=== PATIENT | female | born 1970 | race Caucasian/White ===

== ENCOUNTER 2016-07-25 10:47 | Emergency (ER) | payer OTHER ==
[~2016-07-25] VITALS: Ht 172.7 cm; Wt 116.1 kg
[~2016-07-25 10:47] MED LIST: ACID CONTROL150 MG PO; AMBIEN10 MG PO; BISACODYL SUPP10 MG PR; CELEXA40 MG PO; COLACE100 MG PO; ENDOCET 5-3251 EACH PO; IBUPROFEN800 MG PO; IRON325 MG PO; KLONOPIN0.5 M1 PO; LOVENOX40 MG/0.4 SC; MYLICON,MYLANTA80 MG PO; OXYCODONE HCL5 MG; PROTONIX40 MG PO; SENNA8.6 MG PO; ULTRAM50 MG PO; VITAMIN B12-FO1 EACH SL; VITAMIN D31000 UNIT PO
[2016-07-25 10:55] VITALS: BP 122/79
[2016-07-25 11:58] LABS: HEMATOCRIT 47.7 % (36.0-46.0); MCH 29.6 PG (29.0-34.0); MCHC 33.1 G/DL (30.0-36.0); MCV 89.5 FL (83-99); MEAN PLAT.VOLUME 11.1 uM^3 (9.5-12.4); PLATELET COUNT 284 K/uL (156-360); RBC DIS.WIDTH-SD 42.5 % (39-53); RED BLOOD COUNT 5.33 M/uL (3.80-5.20); WHITE BLOOD COUNT 8.1 K/uL (4.1-10.2)
[2016-07-25] MEDS ORDERED: CYMBALTA60 MG PO (11:58)
[2016-07-25] MEDS ORDERED: MULTI-DAY VITA1 EACH PO (11:58)
[2016-07-25] MEDS ORDERED: LATUDA40 MG PO (11:59)
[2016-07-25 12:14] LABS: CHLORIDE 104 mEq/L (99-109); POTASSIUM 4.3 mEq/L (3.7-5.4); SODIUM 138 mEq/L (136-147)
[2016-07-25 12:16] LABS: GLUCOSE 86 mg/dL (70-99)
[2016-07-25 12:17] LABS: ANION GAP 10 MEQ/L (2-14)
[2016-07-25 12:20] LABS: GFR ESTIMATE (CALCULATED) > 59 mL/min/
[2016-07-25 12:21] LABS: TROP-I INTERPRETATION NEGATIVE; TROPONIN-I < 0.01 ng/mL (0.0-0.30); UREA NITROGEN (BUN) 11 mg/dL (9-23)
[2016-07-25 13:22] LABS: D-DIMER ELISA 0.45 mg/L FEU (< 0.57)
== END 2016-07-25 15:52 | disposition left against medical advice (07) ==
LOC: EME 10:47
PROVIDERS: Physician Assistant Medical
DX: R07.9 Chest pain, unspecified (principal); Z87.891 Personal history of nicotine dependence
CPT/HCPCS: 71020; 80048; 84484; 85027; 85379; 93005; 99281; 99284

== ENCOUNTER 2016-08-01 10:20 | Emergency (ER) | payer OTHER ==
[~2016-08-01] VITALS: Ht 172.7 cm; Wt 117.5 kg
[~2016-08-01 10:20] MED LIST changes: +CYMBALTA60 MG PO; +LATUDA40 MG PO; +MULTI-DAY VITA1 EACH PO
[2016-08-01 11:20] LABS: HEMATOCRIT 42.8 % (36.0-46.0); MCH 29.8 PG (29.0-34.0); MCHC 33.6 G/DL (30.0-36.0); MCV 88.4 FL (83-99); PLATELET COUNT 263 K/uL (156-360); RBC DIS.WIDTH-CV 12.6 % (11.8-14.6); RBC DIS.WIDTH-SD 41.1 % (39-53); RED BLOOD COUNT 4.84 M/uL (3.80-5.20)
[2016-08-01 11:21] LABS: WHITE BLOOD COUNT 5.1 K/uL (4.1-10.2)
[2016-08-01 11:32] LABS: CHLORIDE 107 mEq/L (99-109); POTASSIUM 4.5 mEq/L (3.7-5.4); SODIUM 139 mEq/L (136-147)
[2016-08-01 11:33] LABS: GLUCOSE 89 mg/dL (70-99)
[2016-08-01 11:35] LABS: ANION GAP 7 MEQ/L (2-14)
[2016-08-01 11:37] LABS: GFR ESTIMATE (CALCULATED) > 59 mL/min/
[2016-08-01 11:38] LABS: TROP-I INTERPRETATION NEGATIVE; TROPONIN-I 0.01 ng/mL (0.0-0.30); UREA NITROGEN (BUN) 13 mg/dL (9-23)
[2016-08-01 13:46] LABS: TROP-I INTERPRETATION NEGATIVE; TROPONIN-I 0.01 ng/mL (0.0-0.30)
[2016-08-01 14:10] VITALS: BP 105/71
== END 2016-08-01 14:10 | disposition home or self-care (01) ==
LOC: EME 10:20
PROVIDERS: Physician Assistant
DX: R07.9 Chest pain, unspecified (principal); F41.9 Anxiety disorder, unspecified; Z87.891 Personal history of nicotine dependence
CPT/HCPCS: 71020; 80048; 84484; 85027; 93005; 99281; 99284; Q0177

== ENCOUNTER 2017-01-30 07:37 | Emergency (ER) | payer OTHER ==
[~2017-01-30] VITALS: Ht 167.6 cm; Wt 117.8 kg
[2017-01-30 08:25] LABS: HEMATOCRIT 40.3 % (36.0-46.0); MCV 88.4 FL (83-99); MEAN PLAT.VOLUME 10.9 uM^3 (9.5-12.4); PLATELET COUNT 271 K/uL (156-360); RBC DIS.WIDTH-CV 12.6 % (11.8-14.6); RED BLOOD COUNT 4.56 M/uL (3.80-5.20); WHITE BLOOD COUNT 5.1 K/uL (4.1-10.2)
[2017-01-30 09:00] LABS: ANION GAP 8 MEQ/L (2-14); CHLORIDE 109 MEQ/L (99-109); GFR ESTIMATE (CALCULATED) > 59 mL/min/; GLUCOSE 98 mg/dL (70-99); POTASSIUM 4.1 MEQ/L (3.7-5.4); SAMPLE HEMOLYSIS CHECK 0; SAMPLE ICTERIC CHECK 0; SAMPLE LIPEMIA CHECK 0; SODIUM 139 MEQ/L (136-147); UREA NITROGEN (BUN) 13 mg/dL (9-23)
[2017-01-30 09:25] LABS: ADD MIUA? YES; BILIRUBIN NEGATIVE; BLOOD NEGATIVE; COLOR AMBER ((YELLOW)); GLUCOSE (STRIP) NEGATIVE; KETONES 5; LEUKOCYTES SMALL; NITRITE NEGATIVE; PROTEIN (STRIP) NEGATIVE
[2017-01-30 09:35] LABS: BACTERIA 1+ /HPF; EPITHELIAL CELLS 3+ /HPF; MUCUS 2+ /LPF; RED BLOOD CELLS 20-30 /HPF (0-5); UCUL ADDED? YES
[2017-01-30] MEDS ORDERED: ONDANSETRON ODT4 MG PO (10:44)
[2017-01-30] MEDS ORDERED: BENTYL20 MG PO (10:44)
[2017-01-30 12:09] VITALS: BP 117/71
== END 2017-01-30 12:13 | disposition home or self-care (01) ==
LOC: EME 07:37
DX: R10.9 Unspecified abdominal pain (principal); R11.2 Nausea with vomiting, unspecified; R19.7 Diarrhea, unspecified; R31.29 Other microscopic hematuria; Z90.710 Acquired absence of both cervix and uterus; Z90.49 Acquired absence of other specified parts of digestive tract; F17.200 Nicotine dependence, unspecified, uncomplicated
CPT/HCPCS: 80048; 81003; 84703; 85027; 87086; 99281; 99285; J2405; J7030